=== PATIENT | female | born 1935 | race Caucasian/White ===

== ENCOUNTER 2016-08-26 10:41 | Inpatient (IN) | payer BC ==
--- NOTE | ~2016-08-26 | IDS ---
Interim Discharge Summary [facility] [address] [place]. [address] NAME: RAMAKRISHNA ORDONEZ : 33 STATUS : ADM IN [facility]#: [id number] AGE: 80 ADM/REG DATE : 08/26/16 MR#: [id number] REPORT SERV DATE: 09/04/16 DICTATED BY: RICHARD RUBIO DATE: 09/04/16 REPORT STATUS : Draft TRANSCRIBED BY: JETT DATE: 09/04/16 ADMISSION DATE: 08/26/2016 DISCHARGE DATE: REASON FOR ADMISSION: This is an 80-year-old female, who was a direct admission from primary care, Dr. Fiore, with a chief complaint of fever and acute onset hypoxia and cough. On admission, chest x-ray would reveal patchy nodular infiltrate in the right one. INTERIM DISCHARGE DIAGNOSES: 1. Bilateral pneumonia present on admission. 2. Acute hypoxemic respiratory failure. 3. Mild chronic obstructive pulmonary disease exacerbation. 4. Status post hyponatremia. 5. Dementia. 6. Hypertension. 7. Anemia of chronic disease. HOSPITAL COURSE: 1. Pneumonia. The patient would have a followup chest CT which would show multifocal right greater than left lung consolidation consistent with pneumonia and/or aspiration. Initially, she was started on Zithromax and Rocephin, then was changed to Levaquin. She had a swallow study performed, which she would pass, and speech therapy recommended soft mechanical diet with chopped meats with gravy and thin liquids. She would have some hypoxemic respiratory failure on admission. She since been able to be weaned from O2. Her pneumonia has been resolving. On admission, she had a white cell count of 11.2, and since trended down to 5.5, and no fevers, cough resolving. 2. Dementia with acute metabolic encephalopathy, which is resolving. The patient had some agitated behavior and metabolic encephalopathy during her acute stages of her pneumonia treatment, requiring IV Haldol and Seroquel. She has since been weaned off any use of IV Haldol and is only requiring a low dose of Seroquel 12.5 mg p.o. at bedtime. Her dementia seems to be at baseline. 3. Hypertension. Blood pressure is well controlled here at the hospital. No adjustments needed. 4. Anemia of chronic disease. The patient had a hemoglobin of 9.6, we did check ferritin which was 451 and vitamin B12 of 509. CURRENT MEDICATIONS: 1. Amlodipine 5 mg p.o. daily. 2. Aspirin 81 mg p.o. daily. 3. Arformoterol tartrate inhaled b.i.d. 4. Dulcolax suppository daily. 5. Budesonide inhaled b.i.d. 6. Enoxaparin 40 mg subcu daily. 7. Guaifenesin 400 mg p.o. q.6 hours. 8. Namenda 5 mg p.o. b.i.d. 9. Seroquel 12.5 mg p.o. at bedtime. Interim Discharge Summary [address] [address] NAME: RAMAKRISHNA ORDONEZ : 33 STATUS : ADM IN [facility]#: [id number] AGE: 80 ADM/REG DATE : 08/26/16 MR#: [id number] REPORT SERV DATE: 09/04/16 DICTATED BY: RICHARD RUBIO DATE: 09/04/16 REPORT STATUS : Draft TRANSCRIBED BY: JETT DATE: 09/04/16 CURRENT PLAN: PT evaluation revealed that the patient needs [facility]dc rehab. We are waiting for placement. Since this is a holiday weekend, placement will likely not happen until Monday. MICK/JETT Richard Rubio APN / [id number] CC: Diomedes Martinez M.D.
--- NOTE | ~2016-08-26 | HP ---
History And Physical [facility] [address] [facility] [place]. [address] NAME: RAMAKRISHNA ORDONEZ : 33 STATUS : ADM IN [facility]#: [id number] AGE: 80 ADM/REG DATE : 08/26/16 MR#: [id number] REPORT SERV DATE: 08/26/16 DICTATED BY: DATE: REPORT STATUS : Draft TRANSCRIBED BY: MODL DATE: 08/26/16 DATE OF ADMISSION: 08/26/2016 CHIEF COMPLAINT: Fever, acute-onset hypoxia, and cough. POINT OF ENTRY: Direct admission. Referral from Dr. Fiore, primary care physician. HISTORY OF PRESENTING ILLNESS: The patient's history was obtained through interview with the patient's son. The patient's participation was extremely limited secondary to chronic confusion. [facility] records were also obtained for review. There were no recent [facility] records available for review. The patient's son reported that his mother resides with him at his home and he is the primary caregiver. Son reported that the patient's baseline mental status is confused, sometimes oriented only to self. The patient recognizes her son "most of the time," but is never oriented to time or place. Per son's report, the patient is able to ambulate without assistance using a walker, has had no recent falls, and normally maintained a good appetite. The patient's son stated that patient presented as "more confused" on Monday to include inability to followthrough with activities of daily living such as toileting. The patient also developed "wet cough" over the weekend, but was unable to produce mucus. Son also noticed the patient appeared short of breath with exertion. Temperature maximum at home was reported to be 99.7. The patient's condition continued to decline over the weekend and son accompanied the patient to primary care's office today for evaluation. During office visit, the patient's temperature was reported to be 100.1 degrees Fahrenheit and oxygen saturation was 83% on room air. The patient was referred for direct admission to [facility] for further evaluation and treatment. REVIEW OF SYSTEMS: CONSTITUTIONAL: Positive for fever. No sweats or rigors. EYES: History of bilateral cataract surgery. HEENT: Mild hearing loss. CARDIOVASCULAR: Positive for mild intermittent bradycardia. No chest pain, syncopal or near syncopal episodes. RESPIRATORY: Cough, nonproductive with dyspnea on exertion. GASTROINTESTINAL: No abdominal pain, nausea, vomiting, or constipation. Last bowel movement was this a.m. MUSCULOSKELETAL: No arthralgia or myalgia. INTEGUMENT: No rash or recent nonhealing wounds. NEUROLOGIC: Positive for dementia in the setting of recent acute confusion. No reported history of stroke, TIA, or seizure. History And Physical [address] [address] NAME: RAMAKRISHNA ORDONEZ : 33 STATUS : ADM IN [facility]#: [id number] AGE: 80 ADM/REG DATE : 08/26/16 MR#: [id number] REPORT SERV DATE: 08/26/16 DICTATED BY: DATE: REPORT STATUS : Draft TRANSCRIBED BY: MODL DATE: 08/26/16 HEMATOLOGIC: No anemia. PSYCHIATRIC: No history of depression, bipolar, or anxiety. : No dysuria or hematuria. ENDOCRINE: No diabetes or thyroid disease. HEALTH MAINTENANCE: The son is unable to provide status of flu and pneumonia vaccine. HOME MEDICATIONS: Awaiting Pharmacy reconciliation of home medication list. ALLERGIES: AWAITING PHARMACY RECONCILIATION OF HOME MEDICATION LIST. PAST MEDICAL HISTORY: 1. COPD. 2. Recurrent UTIs. 3. Sleep apnea (?) noted in patient's history, however son denies. 4. Osteoporosis. 5. Dementia, type unknown. PAST SURGICAL HISTORY: 1. Bilateral cataract surgery. 2. Repair of left femur fracture. SOCIAL HISTORY: The patient lives with son and has a part-time sitter. History of 50-year tobacco use, 15 years cessation. No use of alcohol. FAMILY HISTORY: No family history obtained. The patient unable to provide information. The son, a poor historian. PHYSICAL EXAMINATION: VITAL SIGNS: Weight 51.70 kg, BMI 20.2, height 5 feet 3 inches, temperature 98.8, pulse 50, respirations 22, blood pressure 158/70. NEURO: The patient is alert. No focal deficits. GENERAL: The patient is presently confused. Oriented to self and son only, not to time or place. No apparent distress. NECK: No lymphadenopathy. Upper and lower dentures intact. Posterior oropharynx is visible without exudate or lesion. CHEST: No tenderness to palpation. LUNGS: Mild increased work of breathing at rest. No wheezes. Scattered rhonchi throughout. Crackles to bilateral bases, right greater than left. Wet sounding cough. CARDIOVASCULAR: Regular rhythm. Rate mildly bradycardic. No murmurs, rubs, or gallops. ABDOMEN: Soft and nontender. No distention. Bowel sounds are present throughout all quadrants. No organomegaly. EXTREMITIES: No edema to bilateral lower extremities. Small scab covered. Well healing wounds to right anterior lower extremity. DIAGNOSTIC DATA: Pending to include CBC, CMP, magnesium, phosphorus, TSH, lactate, troponin, procalcitonin, strep pneumo urinary antigen, Legionella urinary antigen, blood cultures x2 History And Physical [address] [address] NAME: RAMAKRISHNA ORDONEZ : 33 STATUS : ADM IN [facility]#: [id number] AGE: 80 ADM/REG DATE : 08/26/16 MR#: [id number] REPORT SERV DATE: 08/26/16 DICTATED BY: DATE: REPORT STATUS : Draft TRANSCRIBED BY: MODL DATE: 08/26/16 and sputum culture, urinalysis with reflex culture, EKG, and portable chest x-ray. ASSESSMENT AND PLAN: 1. Acute fever. Temperature maximum reported to be 100.1 degrees Fahrenheit prior to arrival. Etiology of fever is unclear. However, there is concern for respiratory infection/pneumonia. Diagnostic testing to include labs and chest imaging are pending. Empiric antibiotics to include azithromycin and Rocephin will be initiated to treat possible community-acquired pneumonia once the cultures have been obtained. At the time of admission, the patient's temperature was reported to be 98.8. Respirations were mildly elevated at 22. Blood pressure stable at 158/70. The patient will be monitored closely for signs and symptoms of sepsis. 2. Acute hypoxia. Patient has no history of home supplemental oxygen dependency. Oxygen saturation is 83% on room air and 93% on 3 L, likely related to pneumonia. Chest x-ray is pending. Continue supplemental O2 to maintain saturation 92% and above. Initiate bronchodilator protocol. First nebulizer treatment now. 3. Acute cough. This has been present for approximately 72 hours. Per family report, the patient is unable to produce mucus. Start Mucinex 600 mg ER tab p.o. every 12 hours and initiate nebulizer treatment per bronchodilator protocol. 4. Increased confusion in the setting of dementia. The patient's son is unable to provide details as to the type of dementia. The patient has a history of recurrent urinary tract infections. Rule out sources of infection to include pneumonia and urinary tract infection. Urinalysis with reflex culture pending. 5. Chronic obstructive pulmonary disease, chronic. This diagnosis was indicated in the patient's history from 2010. The patient's son appears unaware of this diagnosis. There are no acute signs or symptoms of exacerbation at this time. 6. Bradycardia, intermittent. The patient's heart rate was reported to be 50 beats per minute. Upon admission, the patient is asymptomatic with no recent syncopal or near syncopal events. The patient denies chest pain, pressure or dizziness. EKG is pending. Troponin pending. Unclear etiology at this time. Rule out myocardial infarction. 7. DVT prophylaxis. Enoxaparin 40 mg subcu every 24 hours. The care of this patient will be transferred to the service of Dr. Rudy Ro. GILBERT/JETT ROWAN Osborne / [id number] CC: MD Regi Mota II, M.D.
--- NOTE | ~2016-08-26 | DS ---
Discharge Summary [facility] [address] [place]. [address] NAME: RAMAKRISHNA ORDONEZ : 33 STATUS : DIS IN PAT#: [id number] AGE: 81 ADM/REG DATE : 08/26/16 MR#: [id number] REPORT SERV DATE: 09/09/16 DICTATED BY: JACK PRAKASH DATE: 09/08/16 REPORT STATUS : Draft TRANSCRIBED BY: MODAaron DATE: 09/08/16 ADMISSION DATE: 08/26/2016 DISCHARGE DATE: 09/08/2016 HOSPITAL COURSE: This is an 81-year-old female, direct admission from Dr. Fiore, PCP office. The patient on presentation being more confused, wet cough; 100.1 temperature; known history of COPD; recurrent UTIs; SHARMILA with questionable dementia; osteoporosis; repair of left femur fracture. The patient was found to have bilateral community-acquired pneumonia. CT of the chest, confirmation, multifocal right greater than left lung consolidation. The patient, as a result, had a swallow study eval given her dementia. She has mechanical soft, chopped gravy, thin liquids. No aspiration seen at that time on the 30 of August. The patient was placed on IV Levaquin, Brovana, budesonide regarding COPD acute exacerbation. She finished her antibiotics. Repeat procalcitonin level done today is totally negative. Her white count is negative as well. 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 Some mild sedation from Seroquel during this admission. It is now better optimized. The patient is made a complete DNR/DNI per son's request. The patient has overall poor prognosis given her dementia, seems to be end stage. She is in otherwise good spirits. We will add Lipitor given her subjective history of stroke per the family. DISCHARGE MEDICATIONS: Will include Norvasc 5 p.o. daily; aspirin 81 p.o. daily; guaifenesin 400 p.o. q.6h. should be p.r.n.; melatonin 3 p.o. at bedtime; Fosamax; Namenda 5 p.o. b.i.d., Seroquel 12.5 p.o. at bedtime; albuterol neb; Brovana 15 mcg neb inhaled b.i.d.; and budesonide 0.5 neb b.i.d. Once those are transitioned as an outpatient, consider possible Dulera, Spiriva 18 mcg capsule inhaled daily, incentive spirometer 10 times an hour; Bumex 1 mg p.o. daily; and Lipitor 40 p.o. daily. DISCHARGE DIAGNOSES: Community-acquired pneumonia, dementia, hypertension, anemia of chronic disease, agitation, hypoxic respiratory failure, and atelectasis likely. See rest of my orders. All questions have been answered. DICTATED BY: DO [place] Green/JETT Jack Prakash DO / [id number] Discharge Summary [address] [address] NAME: RAMAKRISHNA ORDONEZ : 33 STATUS : DIS IN PAT#: [id number] AGE: 81 ADM/REG DATE : 08/26/16 MR#: [id number] REPORT SERV DATE: 09/09/16 DICTATED BY: JACK PRAKASH DATE: 09/08/16 REPORT STATUS : Draft TRANSCRIBED BY: JETT DATE: 09/08/16 CC: DO Regi Green M.D.
[2016-08-26 15:49] LABS: BASOPHILS 0.2 %; BASOPHILS ABSOLUTE 0.02 10/3/uL (0.0-0.16); EOSINOPHILS 0.5 %; EOSINOPHILS ABSOLUTE 0.06 10/3/uL (0.0-0.53); IMMATURE GRANULOCYTES 0.5 %; IMMATURE GRANULOCYTES ABSOLUTE 0.06 10/3/uL (0.0-0.11); LYMPHOCYTES 9.6 %; LYMPHOCYTES ABSOLUTE 1.07 10/3/uL (0.67-4.30); MEAN CORPUSCULAR HEMOGLOB 30.5 pg (26.0-34.0); MEAN CORPUSCULAR VOLUME 89.5 fL (80-100); MEAN PLATELET VOLUME 10.7 fL (9.2-13.0); MONOCYTES 8.7 %; MONOCYTES ABSOLUTE 0.97 10/3/uL (0.21-1.20); NEUTROPHILS 80.5 %; NEUTROPHILS ABSOLUTE 9.02 10/3/uL (2.02-8.40); RBC DISTRIBUTION WIDTH 13.5 % (12.0-16.0)
[2016-08-26 15:51] LABS: HEMATOCRIT 29.1 % (36.0-48.0); HEMOGLOBIN 9.9 g/dL (12.0-16.0); MANUAL DIFF NO %; PLATELET COUNT 221 10/3/uL (150-400); RED CELL COUNT 3.25 10/6/uL (4.0-5.6); WHITE BLOOD CELLS 11.2 10/3/uL (4.5-10.5)
[2016-08-26 16:07] LABS: CALCIUM, SERUM 9.1 MG/DL (8.5-10.4); CHLORIDE, SERUM 98 MMOL/L (96-112); CO2 (CARBON DIOXIDE) 33 MMOL/L (24-34); CREATININE 0.81 MG/DL (0.55-1.02); GFR AFRICAN AMERICAN 79 ML/MIN (>=60); GFR NON AFRICAN AMERICAN 68 ML/MIN (>=60); PHOSPHORUS, SERUM 2.8 MG/DL (2.5-4.5); SGOT(AST) 61 U/L (5-40); SGPT(ALT) 54 U/L (5-65); SODIUM, SERUM 138 MMOL/L (135-148); TOTAL BILIRUBIN 0.5 MG/DL (0-1.2); TOTAL PROTEIN 7.3 G/DL (6.0-8.5); TROPONIN I <0.02 NG/ML (<0.05)
[2016-08-26 16:09] LABS: A/G RATIO 0.6 (0.7-1.9); ALBUMIN 2.6 G/DL (3.5-5.0); ALKALINE PHOSPHATASE 90 U/L (45-117); BUN (BLOOD UREA NITROGEN) 22 MG/DL (6-23); GLOBULIN 4.7 G/DL (2.5-4.1); GLUCOSE, SERUM 151 MG/DL (60-99); POTASSIUM, SERUM 2.8 MMOL/L (3.5-5.3)
[2016-08-26 16:12] LABS: ASCORBIC ACID (UR NOT ORDER) NEG (NEG); BILIRUBIN, URINE NEGATIVE (NEG); KETONE, URINE NEGATIVE (NEG); LEUKOCYTE ESTERASE(NOT OR NEG (NEG); WBC (NOT ORDERED) (RFLEX) 1 (0-5)
[2016-08-26] MEDS ORDERED: NAMENDA5 PO (16:58)
[2016-08-26] MEDS ORDERED: ASAB PO (16:58)
[2016-08-26] MEDS ORDERED: FOSAMAX70 MG PO (16:58)
[2016-08-26 17:14] LABS: PROCALCITONIN 0.49 ng/mL (<0.5)
[2016-08-27 04:42] LABS: BASOPHILS 0.2 %; BASOPHILS ABSOLUTE 0.02 10/3/uL (0.0-0.16); EOSINOPHILS 1.2 %; EOSINOPHILS ABSOLUTE 0.14 10/3/uL (0.0-0.53); HEMATOCRIT 29.2 % (36.0-48.0); HEMOGLOBIN 9.8 g/dL (12.0-16.0); IMMATURE GRANULOCYTES 0.4 %; IMMATURE GRANULOCYTES ABSOLUTE 0.05 10/3/uL (0.0-0.11); MEAN CORPUS HGB CONC 33.6 g/dL (32.0-36.0); MEAN CORPUSCULAR VOLUME 89.3 fL (80-100); MEAN PLATELET VOLUME 11.1 fL (9.2-13.0); MONOCYTES ABSOLUTE 1.08 10/3/uL (0.21-1.20); NEUTROPHILS 79.2 %; NEUTROPHILS ABSOLUTE 9.55 10/3/uL (2.02-8.40); PLATELET COUNT 217 10/3/uL (150-400); RBC DISTRIBUTION WIDTH 13.5 % (12.0-16.0); RED CELL COUNT 3.27 10/6/uL (4.0-5.6)
[2016-08-27 04:43] LABS: MANUAL DIFF NO %
[2016-08-27 04:55] LABS: CHLORIDE, SERUM 104 MMOL/L (96-112); CO2 (CARBON DIOXIDE) 31 MMOL/L (24-34); CREATININE 0.67 MG/DL (0.55-1.02); GFR AFRICAN AMERICAN 96 ML/MIN (>=60); GFR NON AFRICAN AMERICAN 82 ML/MIN (>=60); SODIUM, SERUM 142 MMOL/L (135-148)
[2016-08-27 04:56] LABS: BUN (BLOOD UREA NITROGEN) 17 MG/DL (6-23); GLUCOSE, SERUM 111 MG/DL (60-99); POTASSIUM, SERUM 3.9 MMOL/L (3.5-5.3)
[2016-08-27 21:45] LABS: BE (BASE EXCESS) 4.1 MEQ/L (0 +/- 2.5); CARBOXYHEMOGLOBIN 0.4 % (0-3); DEVICE NC; HCO3 (ACTUAL BICARBONATE) 28.2 MEQ/L (23-27); HEMOBLOGIN CONTENT 10.5 G/DL (12-16); INSTRUMENT SERIAL # 8083; METHEMOGLOBIN 0.3 % (0-3); O2 CONTENT 14.1 VOL% (18-24); OPERATOR ID 16469; PCO2 (CO2 TENSION) 41 MMHG (35-45); PO2 (O2 TENSION) 79 MMHG (79-93); SAMPLE Arterial; pH 7.46 (7.37-7.43)
[2016-08-28 04:52] LABS: BASOPHILS 0.3 %; BASOPHILS ABSOLUTE 0.03 10/3/uL (0.0-0.16); HEMATOCRIT 29.6 % (36.0-48.0); HEMOGLOBIN 9.8 g/dL (12.0-16.0); IMMATURE GRANULOCYTES 0.4 %; IMMATURE GRANULOCYTES ABSOLUTE 0.04 10/3/uL (0.0-0.11); LYMPHOCYTES 8.7 %; LYMPHOCYTES ABSOLUTE 0.84 10/3/uL (0.67-4.30); MANUAL DIFF NO %; MEAN CORPUS HGB CONC 33.1 g/dL (32.0-36.0); MEAN CORPUSCULAR HEMOGLOB 29.6 pg (26.0-34.0); MEAN CORPUSCULAR VOLUME 89.4 fL (80-100); MEAN PLATELET VOLUME 9.6 fL (9.2-13.0); MONOCYTES 9.3 %; NEUTROPHILS 80.3 %; NEUTROPHILS ABSOLUTE 7.77 10/3/uL (2.02-8.40); PLATELET COUNT 225 10/3/uL (150-400); RBC DISTRIBUTION WIDTH 13.4 % (12.0-16.0); RED CELL COUNT 3.31 10/6/uL (4.0-5.6); WHITE BLOOD CELLS 9.7 10/3/uL (4.5-10.5)
[2016-08-28 05:01] LABS: BUN (BLOOD UREA NITROGEN) 17 MG/DL (6-23); CALCIUM, SERUM 9.1 MG/DL (8.5-10.4); CHLORIDE, SERUM 104 MMOL/L (96-112); CO2 (CARBON DIOXIDE) 29 MMOL/L (24-34); GFR AFRICAN AMERICAN 99 ML/MIN (>=60); GFR NON AFRICAN AMERICAN 85 ML/MIN (>=60); GLUCOSE, SERUM 107 MG/DL (60-99); POTASSIUM, SERUM 3.5 MMOL/L (3.5-5.3); SODIUM, SERUM 142 MMOL/L (135-148)
[2016-08-28 06:21] LABS: PROCALCITONIN 0.23 ng/mL (<0.5)
[2016-08-29 04:52] LABS: BASOPHILS 0.1 %; BASOPHILS ABSOLUTE 0.01 10/3/uL (0.0-0.16); EOSINOPHILS 0.4 %; EOSINOPHILS ABSOLUTE 0.04 10/3/uL (0.0-0.53); HEMATOCRIT 29.2 % (36.0-48.0); HEMOGLOBIN 9.8 g/dL (12.0-16.0); IMMATURE GRANULOCYTES 0.5 %; IMMATURE GRANULOCYTES ABSOLUTE 0.05 10/3/uL (0.0-0.11); LYMPHOCYTES 6.5 %; LYMPHOCYTES ABSOLUTE 0.66 10/3/uL (0.67-4.30); MEAN CORPUS HGB CONC 33.6 g/dL (32.0-36.0); MEAN CORPUSCULAR HEMOGLOB 30.2 pg (26.0-34.0); MEAN CORPUSCULAR VOLUME 89.8 fL (80-100); MEAN PLATELET VOLUME 9.5 fL (9.2-13.0); MONOCYTES 8.1 %; MONOCYTES ABSOLUTE 0.82 10/3/uL (0.21-1.20); NEUTROPHILS 84.4 %; NEUTROPHILS ABSOLUTE 8.52 10/3/uL (2.02-8.40); PLATELET COUNT 241 10/3/uL (150-400); RBC DISTRIBUTION WIDTH 13.3 % (12.0-16.0); RED CELL COUNT 3.25 10/6/uL (4.0-5.6); WHITE BLOOD CELLS 10.1 10/3/uL (4.5-10.5)
[2016-08-29 04:53] LABS: MANUAL DIFF NO %
[2016-08-29 04:58] LABS: BUN (BLOOD UREA NITROGEN) 18 MG/DL (6-23); CALCIUM, SERUM 9.1 MG/DL (8.5-10.4); CHLORIDE, SERUM 109 MMOL/L (96-112); CO2 (CARBON DIOXIDE) 31 MMOL/L (24-34); CREATININE 0.55 MG/DL (0.55-1.02); GFR AFRICAN AMERICAN 102 ML/MIN (>=60); GFR NON AFRICAN AMERICAN 88 ML/MIN (>=60); GLUCOSE, SERUM 122 MG/DL (60-99); POTASSIUM, SERUM 3.3 MMOL/L (3.5-5.3)
[2016-08-29 05:02] LABS: SODIUM, SERUM 130 MMOL/L (135-148)
[2016-08-29 14:00] LABS: PROCALCITONIN 0.18 ng/mL (<0.5)
[2016-08-30 03:40] LABS: BASOPHILS 0.1 %; BASOPHILS ABSOLUTE 0.01 10/3/uL (0.0-0.16); EOSINOPHILS 0.9 %; EOSINOPHILS ABSOLUTE 0.07 10/3/uL (0.0-0.53); HEMOGLOBIN 9.2 g/dL (12.0-16.0); IMMATURE GRANULOCYTES 0.4 %; IMMATURE GRANULOCYTES ABSOLUTE 0.03 10/3/uL (0.0-0.11); LYMPHOCYTES 9.9 %; LYMPHOCYTES ABSOLUTE 0.77 10/3/uL (0.67-4.30); MEAN CORPUS HGB CONC 32.9 g/dL (32.0-36.0); MEAN CORPUSCULAR HEMOGLOB 29.5 pg (26.0-34.0); MEAN CORPUSCULAR VOLUME 89.7 fL (80-100); MONOCYTES 7.6 %; MONOCYTES ABSOLUTE 0.59 10/3/uL (0.21-1.20); NEUTROPHILS 81.1 %; NEUTROPHILS ABSOLUTE 6.27 10/3/uL (2.02-8.40); PLATELET COUNT 248 10/3/uL (150-400); RBC DISTRIBUTION WIDTH 13.8 % (12.0-16.0); RED CELL COUNT 3.12 10/6/uL (4.0-5.6); WHITE BLOOD CELLS 7.7 10/3/uL (4.5-10.5)
[2016-08-30 03:41] LABS: MANUAL DIFF NO %
[2016-08-30 03:55] LABS: BUN (BLOOD UREA NITROGEN) 17 MG/DL (6-23); CALCIUM, SERUM 9.1 MG/DL (8.5-10.4); CHLORIDE, SERUM 104 MMOL/L (96-112); CO2 (CARBON DIOXIDE) 29 MMOL/L (24-34); GFR AFRICAN AMERICAN 105 ML/MIN (>=60); GFR NON AFRICAN AMERICAN 91 ML/MIN (>=60); GLUCOSE, SERUM 110 MG/DL (60-99); POTASSIUM, SERUM 4.2 MMOL/L (3.5-5.3); SODIUM, SERUM 141 MMOL/L (135-148)
[2016-08-30 20:35] LABS: ASCORBIC ACID (UR NOT ORDER) NEG (NEG); BILIRUBIN, URINE NEGATIVE (NEG); KETONE, URINE NEGATIVE (NEG); LEUKOCYTE ESTERASE(NOT OR NEG (NEG); WBC (NOT ORDERED) (RFLEX) 1 (0-5)
[2016-08-31 12:27] LABS: BASOPHILS 0.3 %; BASOPHILS ABSOLUTE 0.02 10/3/uL (0.0-0.16); EOSINOPHILS 0.6 %; EOSINOPHILS ABSOLUTE 0.05 10/3/uL (0.0-0.53); HEMOGLOBIN 10.2 g/dL (12.0-16.0); IMMATURE GRANULOCYTES 0.4 %; IMMATURE GRANULOCYTES ABSOLUTE 0.03 10/3/uL (0.0-0.11); LYMPHOCYTES ABSOLUTE 0.95 10/3/uL (0.67-4.30); MEAN CORPUS HGB CONC 32.8 g/dL (32.0-36.0); MEAN CORPUSCULAR HEMOGLOB 29.7 pg (26.0-34.0); MEAN CORPUSCULAR VOLUME 90.4 fL (80-100); MEAN PLATELET VOLUME 9.1 fL (9.2-13.0); MONOCYTES 9.6 %; MONOCYTES ABSOLUTE 0.76 10/3/uL (0.21-1.20); NEUTROPHILS 77.1 %; NEUTROPHILS ABSOLUTE 6.08 10/3/uL (2.02-8.40); PLATELET COUNT 265 10/3/uL (150-400); RBC DISTRIBUTION WIDTH 13.9 % (12.0-16.0); RED CELL COUNT 3.44 10/6/uL (4.0-5.6); WHITE BLOOD CELLS 7.9 10/3/uL (4.5-10.5)
[2016-08-31 12:28] LABS: HEMATOCRIT 31.1 % (36.0-48.0); MANUAL DIFF NO %
[2016-08-31 12:42] LABS: BUN (BLOOD UREA NITROGEN) 14 MG/DL (6-23); CHLORIDE, SERUM 103 MMOL/L (96-112); CO2 (CARBON DIOXIDE) 31 MMOL/L (24-34); CREATININE 0.73 MG/DL (0.55-1.02); FERRITIN 451 NG/ML (8-252); GFR AFRICAN AMERICAN 90 ML/MIN (>=60); GFR NON AFRICAN AMERICAN 77 ML/MIN (>=60); GLUCOSE, SERUM 91 MG/DL (60-99); IRON BINDING CAPACITY 187 MCG/DL (225-410); POTASSIUM, SERUM 3.9 MMOL/L (3.5-5.3); SODIUM, SERUM 139 MMOL/L (135-148)
[2016-09-02 06:58] LABS: BASOPHILS 0.5 %; BASOPHILS ABSOLUTE 0.03 10/3/uL (0.0-0.16); EOSINOPHILS 1.8 %; HEMATOCRIT 30.6 % (36.0-48.0); HEMOGLOBIN 9.6 g/dL (12.0-16.0); IMMATURE GRANULOCYTES 0.4 %; IMMATURE GRANULOCYTES ABSOLUTE 0.02 10/3/uL (0.0-0.11); LYMPHOCYTES 25.6 %; MANUAL DIFF NO %; MEAN CORPUS HGB CONC 31.4 g/dL (32.0-36.0); MEAN CORPUSCULAR HEMOGLOB 29.4 pg (26.0-34.0); MEAN CORPUSCULAR VOLUME 93.9 fL (80-100); MEAN PLATELET VOLUME 10.4 fL (9.2-13.0); MONOCYTES 7.5 %; MONOCYTES ABSOLUTE 0.41 10/3/uL (0.21-1.20); NEUTROPHILS 64.2 %; NEUTROPHILS ABSOLUTE 3.51 10/3/uL (2.02-8.40); PLATELET COUNT 173 10/3/uL (150-400); RBC DISTRIBUTION WIDTH 14.2 % (12.0-16.0); RED CELL COUNT 3.26 10/6/uL (4.0-5.6); WHITE BLOOD CELLS 5.5 10/3/uL (4.5-10.5)
[2016-09-02 07:14] LABS: BUN (BLOOD UREA NITROGEN) 18 MG/DL (6-23); CALCIUM, SERUM 8.8 MG/DL (8.5-10.4); CHLORIDE, SERUM 107 MMOL/L (96-112); CO2 (CARBON DIOXIDE) 30 MMOL/L (24-34); CREATININE 0.62 MG/DL (0.55-1.02); GFR AFRICAN AMERICAN 98 ML/MIN (>=60); GFR NON AFRICAN AMERICAN 85 ML/MIN (>=60); GLUCOSE, SERUM 99 MG/DL (60-99); POTASSIUM, SERUM 4.2 MMOL/L (3.5-5.3); SODIUM, SERUM 142 MMOL/L (135-148)
[2016-09-02 19:52] LABS: ASCORBIC ACID (UR NOT ORDER) NEG (NEG); BILIRUBIN, URINE NEGATIVE (NEG); KETONE, URINE NEGATIVE (NEG); LEUKOCYTE ESTERASE(NOT OR NEG (NEG); WBC (NOT ORDERED) (RFLEX) < 1 (0-5)
[2016-09-08 06:42] LABS: BASOPHILS 0.5 %; BASOPHILS ABSOLUTE 0.03 10/3/uL (0.0-0.16); EOSINOPHILS 2.3 %; EOSINOPHILS ABSOLUTE 0.15 10/3/uL (0.0-0.53); HEMATOCRIT 31.6 % (36.0-48.0); HEMOGLOBIN 10.1 g/dL (12.0-16.0); IMMATURE GRANULOCYTES 0.2 %; IMMATURE GRANULOCYTES ABSOLUTE 0.01 10/3/uL (0.0-0.11); LYMPHOCYTES 27.8 %; LYMPHOCYTES ABSOLUTE 1.78 10/3/uL (0.67-4.30); MANUAL DIFF NO %; MEAN CORPUSCULAR VOLUME 93.8 fL (80-100); MEAN PLATELET VOLUME 9.5 fL (9.2-13.0); MONOCYTES 6.3 %; NEUTROPHILS 62.9 %; NEUTROPHILS ABSOLUTE 4.03 10/3/uL (2.02-8.40); PLATELET COUNT 219 10/3/uL (150-400); RBC DISTRIBUTION WIDTH 13.9 % (12.0-16.0); RED CELL COUNT 3.37 10/6/uL (4.0-5.6); WHITE BLOOD CELLS 6.4 10/3/uL (4.5-10.5)
[2016-09-08 06:51] LABS: BUN (BLOOD UREA NITROGEN) 20 MG/DL (6-23); CHLORIDE, SERUM 106 MMOL/L (96-112); CO2 (CARBON DIOXIDE) 32 MMOL/L (24-34); CREATININE 0.62 MG/DL (0.55-1.02); GFR AFRICAN AMERICAN 97 ML/MIN (>=60); GFR NON AFRICAN AMERICAN 84 ML/MIN (>=60); GLUCOSE, SERUM 96 MG/DL (60-99); PHOSPHORUS, SERUM 3.1 MG/DL (2.5-4.5); POTASSIUM, SERUM 4.2 MMOL/L (3.5-5.3); SODIUM, SERUM 142 MMOL/L (135-148)
[2016-09-08 07:34] LABS: PROCALCITONIN <0.05 ng/mL (<0.5)
[2016-10-15] MEDS ORDERED: FOSAMAX70 MG PO (14:15)
[2016-10-15] MEDS ORDERED: ASAB PO (14:15)
[2016-10-15] MEDS ORDERED: NAMENDA5 PO (14:16)
[2016-10-15] MEDS ORDERED: NAMENDA5 (14:16)
[2016-11-07] MEDS ORDERED: MELA3 PO (19:06)
[2016-11-07] MEDS ORDERED: FOSAMAX70 MG PO (19:07)
[2016-11-07] MEDS ORDERED: ZINC220C PO (19:07)
[2016-11-07] MEDS ORDERED: VITC500 PO (19:08)
[2016-11-07] MEDS ORDERED: PULRESP1 INH (19:08)
[2016-11-07] MEDS ORDERED: DUONEB INH (19:08)
[2016-11-07] MEDS ORDERED: CONSTULOSE PO (19:08)
[2016-11-07] MEDS ORDERED: NAMENDA5 PO (19:08)
[2016-11-07] MEDS ORDERED: NORCO1 TA1 PO (19:09)
[2016-11-07] MEDS ORDERED: MIRALAX POWDER1 PKT PO (19:10)
[2016-11-07] MEDS ORDERED: HALF81 PO (19:10)
[2016-11-07] MEDS ORDERED: MULTIPLE VIT PO (19:10)
== END 2016-09-08 16:10 | DRG 189 ==
LOC: CDU2 10:41 → 4SO 09-01 17:53
PROVIDERS: Internal Medicine; Nurse Practitioner Family; Nurse Practitioner Gerontology
DX: J96.01 Acute respiratory failure with hypoxia (principal); J18.9 Pneumonia, unspecified organism; G93.41 Metabolic encephalopathy; J44.0 Chronic obstructive pulmonary disease with (acute) lower respiratory infection; R00.1 Bradycardia, unspecified; J84.10 Pulmonary fibrosis, unspecified; I27.2 Other secondary pulmonary hypertension; E87.1 Hypo-osmolality and hyponatremia; J98.11 Atelectasis; J44.1 Chronic obstructive pulmonary disease with (acute) exacerbation; F02.81 Dementia in other diseases classified elsewhere, unspecified severity, with behavioral disturbance; F05 Delirium due to known physiological condition; Z66 Do not resuscitate; Z87.440 Personal history of urinary (tract) infections; M81.0 Age-related osteoporosis without current pathological fracture; Z87.891 Personal history of nicotine dependence; I10 Essential (primary) hypertension; D63.8 Anemia in other chronic diseases classified elsewhere; Z79.82 Long term (current) use of aspirin; E87.70 Fluid overload, unspecified; G30.9 Alzheimer's disease, unspecified; R53.1 Weakness
CPT/HCPCS: 36600; 71010; 71260; 74230; 80048; 80053; 81001; 82728; 82805; 83550; 83605; 83735; 83880; 84100; 84132; 84145; 84295; 84443; 84484; 85025; 87040; 87449; 92611-GN; 93005; 94640; 97110-GP; 97116-GP; 97162-GP; 97166-GO; 97535-GO; A9270-GY; J0360; J0456; J1630; J1940; J1956; J2405; Q9967